=== PATIENT | female | born 1980 | race Hispanic/Latino ===

== ENCOUNTER 2017-03-09 00:14 | Emergency (ER) | payer OTHER ==
[~2017-03-09] VITALS: Ht 160 cm; Wt 68.0 kg
[2017-03-09] MEDS ORDERED: SODIUM CHLORIDE 0.9% 1000ML 1,000 ML IV STA (00:50)
[2017-03-09 00:58] LABS: BASOPHILS % 0.5 % (0.0-1.0); BILIRUBIN,URINE NEGATIVE (NEGATIVE); CLARITY,URINE CLOUDY (CLEAR); COLOR,URINE YELLOW (YELLOW); EOSINOPHILS % 0.6 % (0.0-6.0); HEMATOCRIT 43.4 % (34.2-44.1); HEMOGLOBIN 14.9 g/dL (12.0-16.0); KETONES,URINE 3+ (NEGATIVE); LEUKOCYTE ESTERASE ,URINE 2+ (NEGATIVE); LYMPHOCYTES # (AUTO) 2.2 (1.0-3.2); LYMPHOCYTES % 34.9 % (18.0-39.1); MEAN CORPUSCULAR HEMOGLOBIN 31.2 pg (28-32); MEAN CORPUSCULAR HGB CONC 34.3 g/dL (31-35); MONOCYTES # (AUTO) 0.5 (0.2-0.8); MONOCYTES % 7.9 % (4.4-11.3); NEUTROPHILS # (AUTO) 3.5 (2.1-6.9); NEUTROPHILS % 55.8 % (38.7-80.0); PLATELET COUNT 164 x10e3/uL (140-360); RED BLOOD COUNT 4.77 x10e6/uL (3.6-5.1); RED CELL DISTRIBUTION WIDTH 11.9 % (11.7-14.4); URINE UROBILINOGEN 0.2 mg/dL (0.2 - 1)
[2017-03-09 01:04] LABS: NITRITE,URINE POSITIVE (NEGATIVE); PROTEIN,URINE DIPSTICK 1+ (NEGATIVE)
[2017-03-09 01:17] LABS: ALANINE AMINOTRANSFERASE 20 IU/L (0-55); ALBUMIN 4.3 g/dL (3.5-5.0); ALKALINE PHOSPHATASE 60 IU/L (40-150); BLOOD UREA NITROGEN 13 mg/dL (7-26); BUN/CREATININE RATIO 15 (6-25); CALCIUM 9.5 mg/dL (8.4-10.2); CARBON DIOXIDE 23 mmol/L (22-29); CHLORIDE 103 mmol/L (98-107); CREATININE, SERUM 0.85 mg/dL (0.57-1.11); EST GLOMERULAR FILTRATION RATE > 60 ML/MIN (60-); GLUCOSE 79 mg/dL (74-118); SODIUM 139 mmol/L (136-145)
[2017-03-09 01:18] LABS: BACTERIA,URINE MANY /HPF; EPITHELIAL CELLS,URINE MODERATE /LPF; WBC,URINE (MAN) 21-50 /HPF (0-5)
[2017-03-09] MEDS ORDERED: CEFTRIAXONE SOD 1 GM VIAL IV STA (01:50)
[2017-03-09] MEDS ORDERED: DEXAMETHASONE SOD PHOS 10 MG/1 ML VIAL IV ONE (02:00)
--- NOTE | 2017-03-09 03:00 | Diagnostic Imaging Report ---
Examination:CT SOFT TISSUE NECK WITH CONTRAST History: Edema. Comparison studies: None Technique: Axial images from the skull base to the thoracic inlet Coronal and sagittal reformatted images. Intravenous contrast: 100mL of Omnipaque 300. Findings: Soft tissues: No abnormalities. Aerodigestive tract: No abnormality. Lymph nodes: No radiographically significant adenopathy. Vessels: Arteries and veins are patent. Thyroid gland: Normal in size and homogeneous. Submandibular glands: Normal in size and homogeneous. Parotid glands: Normal in size and homogeneous. Orbits: No abnormalities. Paranasal sinuses: Clear. Temporal bones: No abnormalities. Skull base and facial bones: Intact. Cervical spine: No disc bulge or herniation or foraminal or canal stenosis. IMPRESSION: No abnormalities. Signed by: Dr. Chantal Laboy M.D. on 03/09/2017 2:56 AM
[2017-03-09] MEDS ORDERED: SODIUM CHLORIDE 0.9% 50ML 50 ML ONE (05:18)
[2017-03-09] MEDS ORDERED: IOPAMIDOL 370 MG/ML 200 ML INFUS..BTL INJ ONE (05:19)
== END 2017-03-09 03:39 | disposition home or self-care (01) ==
LOC: ER 00:14
DX: R68.84 Jaw pain (principal); K11.21 Acute sialoadenitis; N30.91 Cystitis, unspecified with hematuria
CPT/HCPCS: 36415; 70491; 80053; 81001; 83518; 83735; 84702; 85025; 87040; 87070; 87086; 87186; 99284; J0696; J1100; J7030; Q9967

== ENCOUNTER 2017-12-08 11:24 | Emergency (ER) | payer OTHER ==
[~2017-12-08] VITALS: Ht 160 cm; Wt 68.0 kg
--- OUTSIDE RECORDS SUMMARY | 2017-12-08 11:28 | XMS REPORT ---
Author Author [facility] Address Unknown Phone Unavailable Care Team Providers Care Switchboard Clerk Name Role Phone Meghan CAMEJO Unavailable Unavailable Iraj BOUCHER Unavailable Unavailable Problems This patient has no known problems. Allergies, Adverse Reactions, Alerts This patient has no known allergies or adverse reactions. Medications This patient has no known medications. Results Test Description Test Time Test Comments Text Results Atomic Results Result Comments CT SOFT TISSUE NECK W [place] [address] Patient Name: ELENA MAYORGA MR #: [id number] : 1980 Age/Sex: 36/F Req #: [id number] Adm Physician: Ordered by: FILIPE CAMEJO MD Report #: [id number] Location: ER Room/Bed: Procedure: [id number] CT/CT SOFT TISSUE NECK W Exam Date: 03/09/17 Exam Time: 0146 REPORT STATUS: Signed Examination:CT SOFT TISSUE NECK WITH CONTRAST History: Edema. Comparison studies: None Technique: Axial images from the skull base to the thoracic inlet Coronal and sagittal reformatted images. Intravenous contrast: 100mL of Omnipaque 300. Findings: Soft tissues: No abnormalities. Aerodigestive tract: No abnormality. Lymph nodes: No radiographically significant adenopathy. Vessels: Arteries and veins are patent. Thyroid gland: Normal in size and homogeneous. Submandibular glands: Normal in size and homogeneous. Parotid glands: Normal in size and homogeneous. Orbits: No abnormalities. Paranasal sinuses: Clear. Temporal bones: No abnormalities. Skull base and facial bones: Intact. Cervical spine: No disc bulge or herniation or foraminal or canal stenosis. IMPRESSION: No abnormalities. Signed by: Dr. Chantal Laboy M.D. on 03/09/2017 2:56 AM Dictated By: CHANTAL FRANCISCO MD 5 Transcribed By: JOSE on 03/09/17255 COPY TO: FILIPE CAMEJO MD CT ABDOMEN/PELVIS W [place] [address] Patient Name: ELENA MAYORGA MR #: [id number] : 1980 Age/Sex: 36/F Req #: [id number] Adm Physician: Ordered by: ALPHONSE BOUCHER MD Report #: [id number] Location: ER Room/Bed: Procedure: [id number] CT/CT ABDOMEN/PELVIS W Exam Date: Exam Time: REPORT STATUS: Signed PROCEDURE: CT ABDOMEN AND PELVIS WITH CONTRAST TECHNIQUE: The abdomen and pelvis were scanned utilizing a multidetector helical scanner from the diaphragm to the lesser trochanter after the IV administration of 100 cc Isovue-370. Coronal and sagittal multiplanar reformations were obtained. COMPARISON: None. INDICATIONS: EPIGASTRIC PAIN, NAUSEA FINDINGS: LOWER THORAX: Normal. HEPATOBILIARY: Focal hypoattenuation along the falciform ligament compatible with steatosis. No additional focal hepatic lesion or intrahepatic biliary ductal dilatation. The gallbladder is unremarkable. SPLEEN: No splenomegaly. PANCREAS: No focal masses or ductal dilatation. ADRENALS: No adrenal nodules. KIDNEYS/URETERS: No hydronephrosis, calculi, or solid or cystic renal mass lesions. 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 PELVIC ORGANS/BLADDER: The urinary bladder is incompletely distended but otherwise unremarkable. The uterus is anteflexed and appears normal. No adnexal mass. PERITONEUM / RETROPERITONEUM: No ascites. No pneumoperitoneum. LYMPH NODES: No pelvic sidewall, retroperitoneal, or mesenteric lymphadenopathy. VESSELS: The abdominal aorta, major branch vessels, and iliac arterial systems are well-visualized and patent. 2 right renal arteries and a single left renal artery. Retroaortic left renal vein with a small splenorenal collateral venous shunt. Portal vein, splenic vein, and central superior mesenteric vein are patent. GI TRACT: The large bowel shows no evidence of distention or wall thickening. The appendix is not definitively identified; however, there is no right lower quadrant inflammatory change. There is concentric wall thickening of the distal gastric antrum and pylorus, for example on series 2 image 29 through 32. BONES AND SOFT TISSUES: No focal soft tissue abnormalities. No osseous destructive lesions.. IMPRESSION: Concentric wall thickening of the distal gastric antrum and pylorus may be seen in the setting of gastritis, peptic ulcer disease, or less likely neoplastic process. Gastroenterology consultation for potential upper endoscopy is suggested. No pneumoperitoneum or drainable fluid collection. Dictated by: Gregoria Salinas M.D. on 11/11/2016 at 17:14 Electronically approved by: Gregoria Salinas M.D. on 11/11/2016 at 17:14 Dictated By: GREGORIA SALINAS MD 13 Transcribed By: CASEY on 11/11/161713 COPY TO: ALPHONSE BOUCHER MD
--- OUTSIDE RECORDS SUMMARY | 2017-12-08 11:28 | XMS REPORT | Continuity of Care Document ---
Author Author [facility] Interface Address Unknown Phone Unavailable Problems Problem Status Onset Date Classification Date Reported Comments Source Fluid level behind tympanic membrane 09/22/2017 Diagnosis 09/22/2017 [facility] Body mass index 25-29 - overweight 09/22/2017 Diagnosis 09/22/2017 [facility] Pain in throat 09/22/2017 Diagnosis 09/22/2017 [facility] Posterior rhinorrhea 09/22/2017 Diagnosis 09/22/2017 [facility] Otalgia of left ear 09/22/2017 Diagnosis 09/22/2017 [facility] Otitis externa of left ear 09/22/2017 Diagnosis 09/22/2017 [facility] 784.2 - SWELLING IN HEA Active 12/24/2012 [facility] Alexis Acute Sinusitis Problem 09/22/2017 [facility] Allergic Rhinitis Problem 09/22/2017 [facility] Medications Medication Details Route Status Patient Instructions Ordering Provider Order Date Source Hydrocortisone 10 MG/ML / Neomycin 3.5 MG/ML / Polymyxin B 84286 UNT/ML Otic Solution xfknvyqi-ifvdrtjfm-mvrxwlqfv 3.5 mg/mL-10,000 unit/mL-1 % ear solution INSTILL 4 DROPS INTO AFFECTED EAR(S) BY OTIC ROUTE 3 TIMES PER DAY for 7 days Active [facility] Allergies, Adverse Reactions, Alerts Substance Category Reaction Severity Reaction type Status Date Reported Comments Source Levaquin Allergy to substance 03/30/2012 [facility] Metronidazole Allergy to substance 03/30/2012 [facility] Immunizations Immunization Date Given Site Status Last Updated Comments Source Results Order Name Results Value Reference Range Date Interpretation Comments Source Vital Signs Vital Sign Value Date Comments Source Diastolic (mm Hg) 64 09/22/2017 [facility] Height 63 09/22/2017 [facility] Systolic (mm Hg) 98 09/22/2017 [facility] Weight 162 09/22/2017 [facility] Encounters Location Location Details Encounter Type Encounter Number Reason For Visit Attending Provider ADM Date DC Date Status Source OD [id number] 784.2 - SWELLING IN HEA NITESH PATTANAIK 12/24/2012 Active [facility] Roc GALLARDO - [facility] - [id number] IyerC: [address] [facility], [place] [address], Ph. [id number] Yolanda Barrett 09/22/2017 [facility] Procedures Procedure Code Date Perfomer Comments Source
--- OUTSIDE RECORDS SUMMARY | 2017-12-08 11:28 | XMS REPORT | Encounter Summary ---
Author Organization Unknown Address [address] [place] [id number] Phone [phone] Care Team Providers Care Gravity Meter Operator Name Role Phone None 3 Unavailable Reason for Visit Medical Complaint Instructions 1. Otitis externa of left ear ngizofku-cdvhpvzpl-frplsoggm 3.5 mg/mL-10,000 unit/mL-1 % ear solution 2. Otalgia of left ear 3. Posterior rhinorrhea 4. Pain in throat rapid strep group A, throat sore throat: care instructions 5. Fluid level behind tympanic membrane 6. Body mass index 25-29 - overweight body mass index: care instructions Discussion Note Discussed with parent/patient no swimming x 72 hours or till symptoms have resolved and to use ear plugs for preventative purposes in the future. Continue medication as directed and tylenol or ibuprofen as needed per label directions for discomfort. Follow up with PCP. Patient/Parent verbalized understanding. Plan of Care Reminders Provider Appointments None recorded. Lab Rapid Strep Group a, Throat 09/22/2017 [facility] Referral None recorded. Procedures None recorded. Surgeries None recorded. Imaging None recorded. Medications Name Start Date qnqcmvaa-fbscowjso-tkojavcuh 3.5 mg/mL-10,000 unit/mL-1 % ear solution INSTILL 4 DROPS INTO AFFECTED EAR(S) BY OTIC ROUTE 3 TIMES PER DAY for 7 days Medications Administered None recorded. Vitals Height Weight BMI Blood Pressure 5 ft 3 in 162 lbs 28.7 kg/m2 98/64 mm[Hg] Lab Results None recorded. Allergies Code Code System Name Reaction Severity Status Onset 221758 RxNorm Levaquin Active 69 RxNorm Metronidazole Active Problems Name Status Onset Date Source Acute Sinusitis Active Encounter Allergic Rhinitis Active Encounter Procedures None recorded. Vaccine List None recorded. Social History Smoking Status Never Smoker Past Encounters 09/22/2017 Otitis Externa of Left Ear; Otalgia of Left Ear; Posterior Rhinorrhea; Pain in Throat; Fluid Level behind Tympanic Membrane; Body Mass Index 25-29 - Overweight Yolanda Barrett PA-C: [address] [place] [address], Ph. History of Present Illness Throat-Oral Complaint Reported By: Patient HPI: Location: throat. Quality: sore throat; achey. Severity: mild. Duration: 2 days. Onset/Timing: gradual. Context: no sick contacts, non-smoker, foreign travel, exposure to passive smoke. Modifying factors: OTC medication. Associated Symptoms: no fever, no body aches, no sputum production, no shortness of breath, no wheezing, no change in number of pillows needed to sleep at night, no sweats, no significant weight gain, no significant weight loss, no morning cough, no vomiting, no diarrhea, no rash, no nausea, headache, sore throat Ear Complaint Reported By: Patient HPI: Location: left, pain inside ear; radiating to throat. Quality: aching. Severity: progressively worse, continuous. Duration: constant. Onset/Timing: worse, abrupt onset. Context: no sick contacts, no exposure to second hand smoke, no head trauma, not grinding teeth, history of ear aches/ear infections, swimming/water in ear, recent air travel; recently returned [facility]. Modifying factors: hurts to lie on, or pull on ear, hurts to chew, OTC medication. Associated Symptoms: no discharge from the ears, no nose/sinus problems, no ringing in the ears, no fever, no chills, no dizziness, no vertigo, no muscle aches, hearing loss, popping noise in the ears, earache, headache Review of Systems Basic Reported By: Patient Constitutional: Constitutional: no fever Eyes: Eyes: no eye complaints Xaka-Vkrn-Yeqtb-Throat: Ears: difficulty hearing, ear pain. Nose: no nose/sinus problems. Mouth/Throat: no bleeding gums, no mouth complaints, no teeth problems, sore throat Cardiovascular: Cardiovascular: no chest pain, no shortness of breath, no known heart murmur Respiratory: Respiratory: no cough, no wheezing, no shortness of breath Gastrointestinal: Gastrointestinal: no abdominal pain, no vomiting / diarrhea Genitourinary: Genitourinary: no urinary complaints, no discharge Musculoskeletal: Musculoskeletal: no muscle aches, no muscle weakness, no arthralgias/joint pain, no back pain Skin: Skin: no abnormal / changing mole, no jaundice, no rashes Neurologic: Neurologic: no loss of consciousness, no weakness, no numbness, no seizures, no dizziness, no headaches, headache Physical Exam Adult Basic Reported By: Patient Constitutional: General Appearance: healthy-appearing, well-nourished, well-developed. Level of Distress: NAD. Ambulation: ambulating normally Psychiatric: Mental Status: active and alert. Orientation: to time, to place, to person Eyes: Lids and Conjunctivae: non-injected, no discharge, no pallor. Pupils: PERRLA. EOM: EOMI. Sclerae: non-icteric. Vision: acuity grossly intact Smj-Cemb-Fhqww-Throat: Ears: no lesions on external ear, no outer ear tenderness, EACs clear, TMs clear, middle ear fluid; scar tissue bilateral; left EAC swollen and tender to spec insertion. Hearing: hearing decreased. Nose: no lesions on external nose, nares patent, no septal deviation, nasal passages clear, no sinus tenderness, post nasal drip. Lips, Teeth, and Gums: no mouth or lip ulcers, no bleeding gums, normal dentition. Oropharynx: moist mucous membranes, no erythema, no exudates, tonsils not enlarged; cobblestoning secondary to PND Neck: Neck: supple, trachea midline, no masses, FROM. Lymph Nodes: no cervical LAD, no supraclavicular LAD Lungs: Respiratory effort: no dyspnea, no tachypnea, no use of accessory muscles, no intercostal retractions. Auscultation: breath sounds normal Cardiovascular: Heart Auscultation: RRR, no murmurs
[2017-12-08 12:29] LABS: BILIRUBIN,URINE NEGATIVE (NEGATIVE); CLARITY,URINE SL CLOUDY (CLEAR); COLOR,URINE YELLOW (YELLOW); KETONES,URINE 1+ (NEGATIVE); LEUKOCYTE ESTERASE ,URINE NEGATIVE (NEGATIVE); NITRITE,URINE NEGATIVE (NEGATIVE); PROTEIN,URINE DIPSTICK 1+ (NEGATIVE); URINE UROBILINOGEN 0.2 mg/dL (0.2 - 1)
[2017-12-08 12:39] LABS: AMORPHOUS SEDIMENT,URINE MODERATE (FEW); BACTERIA,URINE MODERATE /HPF; EPITHELIAL CELLS,URINE FEW /LPF; MUCUS,URINE MODERATE (RARE)
[2017-12-08 13:15] LABS: BASOPHILS % 0.2 % (0.0-1.0); EOSINOPHILS % 0.2 % (0.0-6.0); HEMATOCRIT 39.6 % (34.2-44.1); HEMOGLOBIN 13.6 g/dL (12.0-16.0); LYMPHOCYTES # (AUTO) 1.7 (1.0-3.2); LYMPHOCYTES % 27.6 % (18.0-39.1); MEAN CORPUSCULAR HEMOGLOBIN 30.8 pg (28-32); MEAN CORPUSCULAR HGB CONC 34.3 g/dL (31-35); MEAN CORPUSCULAR VOLUME 89.8 fL (81-99); MONOCYTES # (AUTO) 0.5 (0.2-0.8); MONOCYTES % 8.2 % (4.4-11.3); NEUTROPHILS # (AUTO) 3.8 (2.1-6.9); NEUTROPHILS % 63.5 % (38.7-80.0); PLATELET COUNT 136 x10e3/uL (140-360); RED BLOOD COUNT 4.41 x10e6/uL (3.6-5.1); RED CELL DISTRIBUTION WIDTH 12.5 % (11.7-14.4)
[2017-12-08 13:30] LABS: ALANINE AMINOTRANSFERASE 9 IU/L (0-55); ALBUMIN 4.4 g/dL (3.5-5.0); ALBUMIN/GLOBULIN RATIO 1.6 (0.8-2.0); ALKALINE PHOSPHATASE 39 IU/L (40-150); ANION GAP 13.5 mmol/L (8-16); BLOOD UREA NITROGEN 15 mg/dL (7-26); BUN/CREATININE RATIO 19 (6-25); CALCIUM 9.3 mg/dL (8.4-10.2); CARBON DIOXIDE 26 mmol/L (22-29); CHLORIDE 105 mmol/L (98-107); CREATININE, SERUM 0.79 mg/dL (0.57-1.11); EST GLOMERULAR FILTRATION RATE > 60 ML/MIN (60-); GLUCOSE 98 mg/dL (74-118); POTASSIUM 3.5 mmol/L (3.5-5.1); SODIUM 141 mmol/L (136-145)
--- NOTE | 2017-12-08 13:48 | Diagnostic Imaging Report ---
EXAM: Transabdominal and Transvaginal Pelvic Ultrasound INDICATION: Pelvic pain COMPARISON: None TECHNIQUE: Grayscale transverse and sagittal transabdominal and transvaginal images were obtained of the pelvis. Transvaginal imaging was medically necessary to better evaluate the endometrium and the adnexa. CLINICAL HISTORY: 37 year old A0; last menstrual period: 11/24/2017. FINDINGS: Uterus Orientation: Normal Size: 7.8 x 3.4 x 4.8 cm, Normal Mass: None Cervix: Normal Endometrium: Thickness: 0.9 cm, Normal. Appearance: Homogeneous echotexture without focal thickening. Right ovary: Size: 2.8 x 1.4 x 2.0 cm Mass/Cyst: Small follicles. The largest measures 0.9 cm. Left ovary: Size: 3.8 x 2.3 x 3.0 cm Mass/Cyst: Small follicles. 2.2 cm dominant follicle/cyst. Adnexa: Normal Cul-de-sac: No free fluid IMPRESSION: Small ovarian follicles with dominant left ovarian follicle/cyst measuring 2.2 cm. Signed by: Dr. Artem Brownlee M.D. on 12/08/2017 1:44 PM
[2017-12-08 13:55] LABS: HCG,QUANTITATIVE < 1.20 mIU/mL (0-10)
[2017-12-08 19:23] VITALS: BP 111/78
== END 2017-12-08 19:30 | disposition home or self-care (01) ==
LOC: ER 11:24
DX: R10.2 Pelvic and perineal pain (principal); N83.202 Unspecified ovarian cyst, left side
CPT/HCPCS: 36415; 76830; 80053; 81001; 84702; 85025; 99283

== ENCOUNTER 2018-03-14 13:54 | Emergency (ER) | payer OTHER ==
[~2018-03-14] VITALS: Ht 160 cm; Wt 63.5 kg
== END 2018-03-14 14:30 | disposition home or self-care (01) ==
LOC: ER 13:54
DX: H57.12 Ocular pain, left eye (principal); H00.024 Hordeolum internum left upper eyelid
CPT/HCPCS: 99283